=== PATIENT | female | born 1990 | race Two or more races ===

== ENCOUNTER → 2018-03-29 | Day surgery (SDC) | payer MEDICAID ==
[~2018-03-29] VITALS: Ht 170.2 cm; Wt 68.0 kg
[2018-03-29] VITALS (12 sets, daily range): BP systolic 97–109; BP diastolic 53–71
[~2018-03-29] MED LIST: AZITHROMYCIN250 MG ORAL; D5 1/2NS 1,000 ML IV SCH; DiphenhydrAMINE 50mg/ml Inj IVP PRN; HYDROCODON-ACE1 EA15 ORAL; HYDROmorphone 1mg/ml Carpuject SUBQ PRN; IBUPROFEN400 MG ORAL; IBUPROFEN600 MG ORAL; KEFLEX500 MG ORAL; Ketorolac 30mg Inj IV PRN; Ketorolac 30mg Inj ONE; LR 1000ml 1,000 ML IVLG SCH; LR 1000ml ONE; Lidocaine 1% MPF 10mg/ml 5ml ONE; MAALOX ADVANCE770 ML PO; MACROBID100 MG ORAL; MIDOL220 MG PO; Meperidine 50mg/ml Inj(FOR RIGORS ONLY) IV PRN; Metoclopramide 10mg/2ml Inj IVP PRN; Midazolam 2mg/2ml Inj ONE; Morphine Sulfate 4mg/ml Inj (IV USE ONLY) IVP ONE; NKM; NORCO 5-325 TA1 EACH ORAL; Norco 5mg/325mg tab ORAL PRN; PEPCID AC20 M2 PO; PHENERGAN25 M1 ORAL; Propofol 200mg/20ml IV ONE; Sterile Water Irrig 1000ml IRRIG ONE; TYLENOL EXTRA500 MG ORAL; Tylenol #3 tab (300mg/30mg) ORAL PRN; ZOFRAN4 MG ORAL; cefOXitin 1gm Inj ONE; fentaNYL 100 mcg/2 mL IV ONE
[2018-03-29 11:20] LABS: BASOPHILS % (AUTO) 1.1 % (0.0-2.0); HEMATOCRIT 38.2 % (37.0-47.0); HEMOGLOBIN 12.5 G/DL (12.0-16.0); LYMPHOCYTES % (AUTO) 37.8 % (20.0-45.0); MEAN CORPUSCULAR VOLUME 90 FL (80-99); MONOCYTES % (AUTO) 7.3 % (1.0-10.0); NEUTROPHILS % (AUTO) 50.7 % (45.0-75.0); PLATELET COUNT 299 K/UL (150-450); RED BLOOD COUNT 4.26 M/UL (4.20-5.40); RED CELL DISTRIBUTION WIDTH 11.3 % (11.6-14.8); WHITE BLOOD COUNT 8.5 K/UL (4.8-10.8)
[2018-03-29 11:25] LABS: ANION GAP 7 mmol/L (5-15); BLOOD UREA NITROGEN 11 mg/dL (7-18); CARBON DIOXIDE 29 MMOL/L (21-32); CHLORIDE 104 MMOL/L (98-107); CREATININE 0.6 MG/DL (0.55-1.30); POTASSIUM 3.6 MMOL/L (3.5-5.1); SODIUM 140 MMOL/L (136-145)
[2018-03-29 11:31] LABS: ALANINE AMINOTRANSFERASE 20 U/L (12-78); ALBUMIN 3.9 G/DL (3.4-5.0); ALBUMIN/GLOBULIN RATIO 1.1 (1.0-2.7); ALKALINE PHOSPHATASE 65 U/L (46-116); ASPARTATE AMINO TRANSFERASE 19 U/L (15-37); BILIRUBIN,TOTAL 0.7 MG/DL (0.2-1.0)
[2018-03-29 11:32] LABS: BILIRUBIN, URINE NEGATIVE (NEGATIVE); GLUCOSE, URINE (UA) NEGATIVE (NEGATIVE); KETONES,URINE NEGATIVE (NEGATIVE); LEUKOCYTE ESTERASE ,URINE 2+ (NEGATIVE); NITRITE,URINE NEGATIVE (NEGATIVE); PH,URINE 8 (4.5-8.0); PROTEIN,URINE 3+ (NEGATIVE); UROBILINOGEN,URINE NORMAL MG/DL (0.0-1.0)
[2018-03-29 11:33] LABS: APPEARANCE,URINE TURBID; COLOR,URINE RED
--- NOTE | 2018-03-29 14:03 | Diagnostic Imaging Report ---
Indication: Vaginal spotting x3 days, low but positive test, status post pill x2 Technique: Transabdominal and transvaginal images Comparison: 01/16/2015 Findings: Uterus measures 11.6 cm length by 5.4 cm AP. Area of mixed echogenicity material within the endometrium, mostly hyperechoic and hypervascular, measures 3.9 x 3.6 cm. No gestational sac demonstrated. There is a lower uterine segment fibroid. Left ovary measures 2.4 cm in length. Right ovary measures 3.6 cm in length. No adnexal mass demonstrated. No free cul-de-sac fluid Impression: Considerable mixed echogenicity hypervascular material within the endometrium, likely retained products of conception given stated clinical history Negative for adnexal mass Probable small uterine fibroid Findings discussed by phone with Dr. Juan in the emergency room at the time of interpretation
--- NOTE | 2018-03-29 15:30 | Emergency Room Report ---
History of Present Illness General Chief Complaint: Complications Source: Patient Present Illness HPI This patient states that in early out of she was 7 weeks . She states that day she found out she was she went to a women's health clinic and obtained the elective medical regimen. She states she followed the regimen. She did have bleeding at that time. She went for follow-up appointment 3 weeks later and was told she had some retained clots. She was also given a repeat dosage of pills that she is unsure of the name. She states that they were hormones. She states that she did have bleeding began at that time. She then followed up again and was placed on control pills 2 weeks ago. She states that she presents emergency department because she has had heavy vaginal bleeding since yesterday evening. She states she has been soaking tampons and pads. She's been soaking through and bleeding profusely. She also has pain in her pelvis. She denies fever or chills. She denies nausea or vomiting. She denies chest pain or shortness of breath. She has no other complaints. Allergies: Coded Allergies: No Known Allergies (Unverified , 11/15/14) Patient History Past Medical History: none, see triage record Last Menstrual Period: 01/2018 Now: No : 3 Para: 1 Reviewed Nursing Documentation: PMH: Agreed; PSxH: Agreed Nursing Documentation-PMH Past Medical History: No Stated History Review of Systems All Other Systems: negative except mentioned in HPI Physical Exam Vital Signs Date Time Temp Pulse Resp B/P (MAP) Pulse Ox O2 Delivery O2 Flow Rate FiO2 03/29/18 10:33 98.2 80 14 107/70 97 98.2 Sp02 EP Interpretation: reviewed, normal General Appearance: no apparent distress, alert, GCS 15, non-toxic Head: normocephalic, atraumatic Eyes: bilateral eye normal inspection, bilateral eye PERRL ENT: hearing grossly normal, normal pharynx, no angioedema, normal voice Neck: full range of motion, supple/symm/no masses Respiratory: chest non-tender, lungs clear, normal breath sounds, no respiratory distress, no retraction, no accessory muscle use, speaking full sentences Cardiovascular #1: regular rate, rhythm, no edema Gastrointestinal: normal bowel sounds, soft, non-distended, no guarding, no rebound, tenderness - TTP pelvis, suprapubic Rectal: deferred Genitourinary: ext genitalia/vag normal, other - OS open to fingertip. Moderate active bleeding from os. Musculoskeletal: back normal, gait/station normal, normal range of motion, non- tender, calf tenderness Neurologic: alert, oriented x3, responsive, motor strength/tone normal, sensory intact, speech normal Psychiatric: judgement/insight normal, memory normal, mood/affect normal, no suicidal/homicidal ideation Skin: normal color, no rash, warm/dry, well hydrated Medical Decision Making Diagnostic Impression: Primary Impression: Retained products of conception ER Course This patient has retained products of conception and heavy vaginal bleeding over the past 24 hours. Her vital signs did remain stable during her ED course. She did not require blood transfusion. This patient has had retained products of conception for a month and a half. [employer] on-call was contacted and took this patient to the operating room for surgical D&C. Laboratory Tests Test 03/29/18 10:50 White Blood Count 8.5 K/UL (4.8-10.8) Red Blood Count 4.26 M/UL (4.20-5.40) Hemoglobin 12.5 G/DL (12.0-16.0) Hematocrit 38.2 % (37.0-47.0) Mean Corpuscular Volume 90 FL (80-99) Mean Corpuscular Hemoglobin 29.3 PG (27.0-31.0) Mean Corpuscular Hemoglobin Concent 32.7 G/DL (32.0-36.0) Red Cell Distribution Width 11.3 % (11.6-14.8) L Platelet Count 299 K/UL (150-450) Mean Platelet Volume 8.3 FL (6.5-10.1) Neutrophils (%) (Auto) 50.7 % (45.0-75.0) Lymphocytes (%) (Auto) 37.8 % (20.0-45.0) Monocytes (%) (Auto) 7.3 % (1.0-10.0) Eosinophils (%) (Auto) 3.0 % (0.0-3.0) Basophils (%) (Auto) 1.1 % (0.0-2.0) Urine Color Red Urine Appearance Turbid Urine pH 8 (4.5-8.0) Urine Specific [place] 1.015 (1.005-1.035) Urine Protein 3+ (NEGATIVE) H Urine Glucose (UA) Negative (NEGATIVE) Urine Ketones Negative (NEGATIVE) Urine Blood 5+ (NEGATIVE) H Urine Nitrite Negative (NEGATIVE) Urine Bilirubin Negative (NEGATIVE) Urine Urobilinogen Normal MG/DL (0.0-1.0) Urine Leukocyte Esterase 2+ (NEGATIVE) H Urine RBC Tntc /HPF (0 - 2) H Urine WBC 2-4 /HPF (0 - 2) Urine Squamous Epithelial Cells Few /LPF (NONE/OCC) Urine Bacteria Few /HPF (NONE) Sodium Level 140 MMOL/L (136-145) Potassium Level 3.6 MMOL/L (3.5-5.1) Chloride Level 104 MMOL/L (98-107) Carbon Dioxide Level 29 MMOL/L (21-32) Anion Gap 7 mmol/L (5-15) Blood Urea Nitrogen 11 mg/dL (7-18) Creatinine 0.6 MG/DL (0.55-1.30) Estimate Glomerular Filtration Rate > 60 mL/min (>60) Glucose Level 93 MG/DL (74-106) Calcium Level 9.0 MG/DL (8.5-10.1) Total Bilirubin 0.7 MG/DL (0.2-1.0) Aspartate Amino Transferase (AST) 19 U/L (15-37) Alanine Aminotransferase (ALT) 20 U/L (12-78) Alkaline Phosphatase 65 U/L (46-116) Total Protein 7.3 G/DL (6.4-8.2) Albumin 3.9 G/DL (3.4-5.0) Globulin 3.4 g/dL Albumin/Globulin Ratio 1.1 (1.0-2.7) Human Chorionic Gonadotropin, Quant 7 mIU/mL (1-6) H CT/MRI/US Diagnostic Results CT/MRI/US Diagnostic Results : Imaging Test Ordered: US pelvis Impression Retained POC. See official report in EMR. Last Vital Signs Date Time Temp Pulse Resp B/P (MAP) Pulse Ox O2 Delivery O2 Flow Rate FiO2 03/29/18 11:19 98.2 03/29/18 10:33 80 14 107/70 97 Disposition: PLACE IN OBSERVATION Condition: Serious Referrals: NON PHYSICIAN (PCP) Griselda Marmolejo DO Mar 29, 2018 15:30
--- NOTE | 2018-03-29 16:59 | History & Physical ---
History and Physical History & Physicial GYNECOLOGY HISTORY & PHYSICAL CC: Heavy vaginal bleeding post- HPI: Jamil is a 27yo who presented to the ED with complaint of heavy vaginal bleeding post-medical . She was initially seen at an outpatient clinic on 02/17 and received Mife/Miso for Med Ab at 7w5d [place]. LMP early January. She reports that she had some heavy bleeding after the Mife/Miso but did not pass tissue and was seen 2w later for follow up and told she had clots in her uterus. She was given a repeat dose of Miso and states that she had nausea/vomiting for 3 days as well as some cramping, but no bleeding. 1 week later she had another ultrasound that revealed persistent clots in her uterus, she was started on COCs and was told to follow up in 3 weeks. She has most recently experienced copious vaginal bleeding, started yesterday, with passage of clots and cramping. She reports soaking pads and tampons and bleeding through her clothes. The ED physician states that she has been bleeding steadily since she has been in the ED with passage of clots. US revealed a thickened ET (3.9cm) with hypervascularity concerning for retained POC. She is currently experiencing cramping and is passing clots. Denies dizziness, lightheadedness, no fever or chills. No chest pain or shortness of breath. PMH: Denies hx of HTN, asthma, DM, or thyroid dz PSH: Denies OBHx: - 2y ago, Sab x 1, Tab x 1 GYNHx: Last Pap during , no hx abnl Pap, no known hx cysts or fibroids Meds: COCs Allergies: NKDA SocHx: lives with partner, her child, her mother in law. Smokes marijuana daily , social alcohol use, no tobacco FamHx: Grandparents of cancer, unknown type Vitals: T max 98.2, P 63, BP 99/56, RR 16, O2 100% RA Exam: Gen: somewhat uncomfortable while cramping, otherwise in NAD HEENT: OP clear, MMM CV: Reg rate, no tachycardia Pulm: No increased work of breathing Abd: Soft, TTP in suprapubic region Pelvic: Deferred, +blood at perineum Ext: No calf TTP Labs: Test 03/29/18 10:50 White Blood Count 8.5 K/UL (4.8-10.8) Red Blood Count 4.26 M/UL (4.20-5.40) Hemoglobin 12.5 G/DL (12.0-16.0) Hematocrit 38.2 % (37.0-47.0) Mean Corpuscular Volume 90 FL (80-99) Mean Corpuscular Hemoglobin 29.3 PG (27.0-31.0) Mean Corpuscular Hemoglobin Concent 32.7 G/DL (32.0-36.0) Red Cell Distribution Width 11.3 % (11.6-14.8) L Platelet Count 299 K/UL (150-450) Mean Platelet Volume 8.3 FL (6.5-10.1) Neutrophils (%) (Auto) 50.7 % (45.0-75.0) Lymphocytes (%) (Auto) 37.8 % (20.0-45.0) Monocytes (%) (Auto) 7.3 % (1.0-10.0) Eosinophils (%) (Auto) 3.0 % (0.0-3.0) Basophils (%) (Auto) 1.1 % (0.0-2.0) Urine Color Red Urine Appearance Turbid Urine pH 8 (4.5-8.0) Urine Specific [place] 1.015 (1.005-1.035) Urine Protein 3+ (NEGATIVE) H Urine Glucose (UA) Negative (NEGATIVE) Urine Ketones Negative (NEGATIVE) Urine Blood 5+ (NEGATIVE) H Urine Nitrite Negative (NEGATIVE) Urine Bilirubin Negative (NEGATIVE) Urine Urobilinogen Normal MG/DL (0.0-1.0) Urine Leukocyte Esterase 2+ (NEGATIVE) H Urine RBC Tntc /HPF (0 - 2) H Urine WBC 2-4 /HPF (0 - 2) Urine Squamous Epithelial Cells Few /LPF (NONE/OCC) Urine Bacteria Few /HPF (NONE) Sodium Level 140 MMOL/L (136-145) Potassium Level 3.6 MMOL/L (3.5-5.1) Chloride Level 104 MMOL/L (98-107) Carbon Dioxide Level 29 MMOL/L (21-32) Anion Gap 7 mmol/L (5-15) Blood Urea Nitrogen 11 mg/dL (7-18) Creatinine 0.6 MG/DL (0.55-1.30) Estimat Glomerular Filtration Rate > 60 mL/min (>60) Glucose Level 93 MG/DL (74-106) Calcium Level 9.0 MG/DL (8.5-10.1) Total Bilirubin 0.7 MG/DL (0.2-1.0) Aspartate Amino Transf (AST/SGOT) 19 U/L (15-37) Alanine Aminotransferase (ALT/SGPT) 20 U/L (12-78) Alkaline Phosphatase 65 U/L (46-116) Total Protein 7.3 G/DL (6.4-8.2) Albumin 3.9 G/DL (3.4-5.0) Globulin 3.4 g/dL Albumin/Globulin Ratio 1.1 (1.0-2.7) Human Chorionic Gonadotropin, Quant 7 mIU/mL (1-6) H Imaging: Pelvic US - Findings: - Uterus measures 11.6 cm length by 5.4 cm AP. Area of mixed echogenicity material within the endometrium, mostly hyperechoic and hypervascular, measures 3.9 x 3.6 cm. No gestational sac demonstrated. There is a lower uterine segment fibroid. Left ovary measures 2.4 cm in length. Right ovary measures 3.6 cm in length. No adnexal mass demonstrated. No free cul-de-sac fluid Impression: - Considerable mixed echogenicity hypervascular material within the endometrium , likely retained products of conception given stated clinical history - Negative for adnexal mass - Probable small uterine fibroid ASSESSMENT/PLAN: 27yo s/p Medical termination on 02/17, presenting with heavy VB, likely retained products of conception. Recommend urgent D&C. - Patient has failed medical management and is bleeding heavily - She has remained stable with normal H/H but is continuing to bleed with evidence of retained POC on ultrasound - Will proceed to OR as soon as we are able - R/B/A to procedure discussed with the patient, and consent was obtained. All questions answered. - Rh positive, no indication for Rhogam - Anticipate d/c home from PACU once she has met all d/c criteria Nadia Xavier M.D. Mar 29, 2018 16:59
--- NOTE | 2018-03-29 17:45 | Pre-Procedure Note/Attestation ---
Pre-Procedure Note/Attestation Complete Prior to Procedure Planned Procedure: not applicable Procedure Narrative: Dilation and curettage with and without suction Indications for Procedure Pre-Operative Diagnosis: Retained products of conception, heavy vaginal bleeding Attestation I attest that I discussed the nature of the procedure; its benefits; risks and complications; and alternatives (and the risks and benefits of such alternatives ), prior to the procedure, with the patient (or the patient's legal jewelry sales representative). I attest that, if there was a reasonable possibility of needing a blood transfusion, the patient (or the patient's legal jewelry sales representative) was given the [facility] standardized written summary, pursuant to the Zach Korey Blood Safety Act ([place] Health and Safety Code # 1645, as amended). I attest that I re-evaluated the patient just prior to the surgery and that there has been no change in the patient's H&P, except as documented below: None Nadia Xavier M.D. Mar 29, 2018 17:45
--- NOTE | 2018-03-29 18:07 | Anethesia Preoperative Eval ---
Anesthesia Pre-op PMH/ROS General Date of Evaluation: Mar 29, 2018 Time of Evaluation: 17:10 Anesthesiologist: Heri ASA Score: ASA 2 Mallampati Score Class I : Soft palate, uvula, fauces, pillars visible Class II: Soft palate, uvula, fauces visible Class III: Soft palate, base of uvula visible Class IV: Only hard plate visible Mallampati Classification: Class II Surgeon: Morenita Diagnosis: Incomplete Surgical Procedure: Suction D&C Anesthesia History: none Social History: drug use - [place] Allergies: Coded Allergies: No Known Allergies (Unverified , 11/15/14) Past Medical History Cardiovascular: Denies: HTN, CAD, LA, valve dz, arrhythmia, other Pulmonary: Denies: asthma, COPD, MICHAEL, other Gastrointestinal/Genitourinary: Reports: GERD Neurologic/Psychiatric: Denies: dementia, CVA, depression/anxiety, TIA, other Endocrine: Denies: DM, hypothyroidism, steroids, other HEENT: Denies: cataract (L), cataract (R), glaucoma, QUINAULT (L), QUINAULT (R), other Hematology/Immune: Reports: anemia - mild PMH Narrative: as above PSxH Narrative: Med. Anesthesia Pre-op Phys. Exam Physician Exam Last Vital Signs Date Time Temp Pulse Resp B/P (MAP) Pulse Ox O2 Delivery O2 Flow Rate FiO2 03/29/18 17:10 97.9 63 16 110/63 100 Room Air 97.9 Constitutional: NAD Neurologic: CN 2-12 intact Cardiovascular: RRR, no M/R/G Respiratory: CTA Gastrointestinal: S/NT/ND Airway Exam Mallampati Score: Class II MO: limited Neck: flexible ROM: full Teeth: missing, broken Dentures: no upper, no lower Anesthesia Pre-op A/P Labs Hematology Test 03/29/18 10:50 White Blood Count 8.5 K/UL (4.8-10.8) Red Blood Count 4.26 M/UL (4.20-5.40) Hemoglobin 12.5 G/DL (12.0-16.0) Hematocrit 38.2 % (37.0-47.0) Mean Corpuscular Volume 90 FL (80-99) Mean Corpuscular Hemoglobin 29.3 PG (27.0-31.0) Mean Corpuscular Hemoglobin Concent 32.7 G/DL (32.0-36.0) Red Cell Distribution Width 11.3 % (11.6-14.8) L Platelet Count 299 K/UL (150-450) Mean Platelet Volume 8.3 FL (6.5-10.1) Neutrophils (%) (Auto) 50.7 % (45.0-75.0) Lymphocytes (%) (Auto) 37.8 % (20.0-45.0) Monocytes (%) (Auto) 7.3 % (1.0-10.0) Eosinophils (%) (Auto) 3.0 % (0.0-3.0) Basophils (%) (Auto) 1.1 % (0.0-2.0) Chemistry Test 03/29/18 10:50 Sodium Level 140 MMOL/L (136-145) Potassium Level 3.6 MMOL/L (3.5-5.1) Chloride Level 104 MMOL/L (98-107) Carbon Dioxide Level 29 MMOL/L (21-32) Anion Gap 7 mmol/L (5-15) Blood Urea Nitrogen 11 mg/dL (7-18) Creatinine 0.6 MG/DL (0.55-1.30) Estimat Glomerular Filtration Rate > 60 mL/min (>60) Glucose Level 93 MG/DL (74-106) Calcium Level 9.0 MG/DL (8.5-10.1) Total Bilirubin 0.7 MG/DL (0.2-1.0) Aspartate Amino Transf (AST/SGOT) 19 U/L (15-37) Alanine Aminotransferase (ALT/SGPT) 20 U/L (12-78) Alkaline Phosphatase 65 U/L (46-116) Total Protein 7.3 G/DL (6.4-8.2) Albumin 3.9 G/DL (3.4-5.0) Globulin 3.4 g/dL Albumin/Globulin Ratio 1.1 (1.0-2.7) Human Chorionic Gonadotropin, Quant 7 mIU/mL (1-6) H Risk Assessment & Plan Assessment: ASA 2 Plan: GA with LMA Status Change Before Surgery: No Pre-Antibiotics Drug: Cefoxitin !gr. Given Within 1 Hr of Incision: Yes Time Given: 17:45 Tre Liriano MD Mar 29, 2018 18:07
--- NOTE | 2018-03-29 18:26 | Brief Operative Note ---
Immediate Post Operative Note Operative Note Chief Complaint: Heavy vaginal bleeding post medical Pre-op Diagnosis: Retained products of conception, heavy vaginal bleeding Procedure: Dilation and curettage with and without suction Post-op Diagnosis: Retained products of conception Post-op Diagnosis: same as pre-op Surgeon: Nadia Xavier MD Anesthesiologist: Dr. Liriano Anesthesia: general - LMA Specimen: yes Complications: none Condition: stable Fluids: 1000cc crystalloid Estimated Blood Loss: volume - 250cc Drains: none Implant(s) used?: No Nadia Xavier M.D. Mar 29, 2018 18:26
--- NOTE | 2018-03-29 18:30 | Operative Note - PDOC ---
Operative Note Operative Note Date of Operation/Procedure: Mar 29, 2018 Chief Complaint: Heavy vaginal bleeding post medical Pre-op Diagnosis: Retained products of conception, heavy vaginal bleeding Procedure: Dilation and curettage with and without suction Post-op Diagnosis: Retained products of conception Post-op Diagnosis: same as pre-op Surgeon: Nadia Xavier MD Anesthesiologist: Dr. Liriano Anesthesia: general - LMA Specimen: yes Complications: none Condition: stable Fluids: 1000cc crystalloid Estimated Blood Loss: volume - 250cc Drains: none Implant(s) used?: No Indications for Procedure Heavy vaginal bleeding with evidence of retained products of conception on ultrasound in ED Description of Procedure The R/B/A to the procedure were discussed with the patient and informed consent was obtained. The patient was taken to the operating room where general anesthesia was administered without difficulty. The patient was placed in dorsal lithotomy with SCD stockings in place. Exam under anesthesia revealed a 7-8cm uterus with dilated cervix and 25cc of dark clot in the vault. The patient was then prepped and draped in the usual sterile fashion. Time out was performed to verify correct patient and procedure. Antibiotics were administered. Straight cath was performed to empty the bladder. A sterile speculum was inserted into the vagina and the anterior lip of the cervix was grasped with a ring forceps. The cervix was dilated to accommodate the 7mm curette. The 7mm rigid suction curette was inserted into the uterine cavity and was used to perform gentle curettage. A gritty sensation was felt throughout the uterine cavity. Fractional curettage was then performed and a gritty texture was appreciated throughout the uterine cavity. Some uterine atony and bleeding was noted during the procedure, thus IM Methergine 0.2mg was administered. Bleeding resolved after administration of Methergine coupled with uterine massage. The 7mm suction curette was then reinserted into the uterine cavity to clear out all clots and remaining blood from the uterine cavity and a gritty texture was appreciated throughout the uterine cavity once more. The procedure was ended. All instruments were removed and excellent hemostasis was noted. The patient was awakened from anesthesia and taken to the recovery room in good condition. The patient will be discharged home once she has met all discharge criteria with a prescription for a PO Methergine series. Nadia Xavier M.D. Mar 29, 2018 18:30
--- NOTE | 2018-03-29 18:41 | Immediate Post-Op Evaluation ---
Immediate Post-Op Evalulation Immediate Post-Op Evalulation Procedure: Suction D&C Date of Evaluation: Mar 29, 2018 Time of Evaluation: 18:39 IV Fluids: 1200 Blood Products: NONE Estimated Blood Loss: 250 Urinary Output: 300 Blood Pressure Systolic: 107 Blood Pressure Diastolic: 58 Pulse Rate: 80 Respiratory Rate: 20 O2 Sat by Pulse Oximetry: 100 Temperature (Fahrenheit): 97.4 Pain Score (1-10): 1 Nausea: No Vomiting: No Complications none Patient Status: reacts, patent, none Hydration Status: adequate Tre Liriano MD Mar 29, 2018 18:41
--- NOTE | 2018-03-29 18:42 | 48 Hour Post Anesthesia Eval ---
Post Anesthesia Evaluation Procedure: Suction D&C Date of Evaluation: Mar 29, 2018 Time of Evaluation: 19:40 Blood Pressure Systolic: 108 0: 59 Pulse Rate: 81 Respiratory Rate: 20 Temperature (Fahrenheit): 97.6 O2 Sat by Pulse Oximetry: 98 Airway: patent Nausea: No Vomiting: No Pain Intensity: 2 Hydration Status: adequate Cardiopulmonary Status: stable Mental Status/LOC: patient returned to baseline Follow-up Care/Observations: n/a Post-Anesthesia Complications: none Follow-up care needed: ready to discharge Tre Liriano MD Mar 29, 2018 18:42
== END | disposition home or self-care (01) ==
LOC: EMR 11:35 → SUR 16:58
DX: O03.4 Incomplete spontaneous abortion without complication (principal); D64.9 Anemia, unspecified; K21.9 Gastro-esophageal reflux disease without esophagitis
CPT/HCPCS: 36415; 59812; 76830; 76856; 80053; 81003; 84702; 85025; 86900; 86901; 96361; 96374; 96375; 96376; 99285; J0694; J1885; J2250; J2270; J2405; J2704; J3010; Z7512; 94003; 94150

== ENCOUNTER 2018-04-02 06:48 | Emergency (ER) | payer MEDICAID ==
[~2018-04-02] VITALS: Ht 170.2 cm; Wt 68.0 kg
[~2018-04-02 06:48] MED LIST changes: -D5 1/2NS 1,000 ML IV SCH; -DiphenhydrAMINE 50mg/ml Inj IVP PRN; -HYDROmorphone 1mg/ml Carpuject SUBQ PRN; -Ketorolac 30mg Inj IV PRN; -Ketorolac 30mg Inj ONE; -LR 1000ml 1,000 ML IVLG SCH; -LR 1000ml ONE; -Lidocaine 1% MPF 10mg/ml 5ml ONE; -MAALOX ADVANCE770 ML PO; -Meperidine 50mg/ml Inj(FOR RIGORS ONLY) IV PRN; -Metoclopramide 10mg/2ml Inj IVP PRN; -Midazolam 2mg/2ml Inj ONE; -Morphine Sulfate 4mg/ml Inj (IV USE ONLY) IVP ONE; -Norco 5mg/325mg tab ORAL PRN; -PEPCID AC20 M2 PO; -Propofol 200mg/20ml IV ONE; -Sterile Water Irrig 1000ml IRRIG ONE; -Tylenol #3 tab (300mg/30mg) ORAL PRN; -cefOXitin 1gm Inj ONE; -fentaNYL 100 mcg/2 mL IV ONE
[2018-04-02 07:18] VITALS: BP 93/61
--- NOTE | 2018-04-02 07:23 | Emergency Room Report ---
History of Present Illness General Chief Complaint: Chest Pain Source: Patient Present Illness HPI This patient is status post 3 days from a D&C for retained products of conception. Apparently the procedure went well. She did have some blood loss per report. The patient states that she had been doing well and denies vaginal bleeding. She states that last night she started feeling a burning sensation in her epigastrium and through her mid chest. She states that this felt hot. She states that over the night last night she then developed a pressure sensation in her chest. She states it felt like someone was sitting on her chest at that time. She also became very anxious. She denies fever or chills. She denies cough or congestion. She denies pelvic pain. She has no other complaints. Allergies: Coded Allergies: No Known Allergies (Unverified , 11/15/14) Patient History Past Medical History: see triage record Social History: Denies: smoking, alcohol use, drug use Last Menstrual Period: unk Reviewed Nursing Documentation: PMH: Agreed; PSxH: Agreed Nursing Documentation-PMH Past Medical History: No History, Except For Review of Systems All Other Systems: negative except mentioned in HPI Physical Exam Vital Signs Date Time Temp Pulse Resp B/P (MAP) Pulse Ox O2 Delivery O2 Flow Rate FiO2 04/02/18 06:52 98.6 96 16 107/76 100 Room Air 98.6 Sp02 EP Interpretation: reviewed, normal General Appearance: no apparent distress, alert, GCS 15, non-toxic Head: normocephalic, atraumatic Eyes: bilateral eye normal inspection, bilateral eye PERRL ENT: hearing grossly normal, normal pharynx, no angioedema, normal voice Neck: full range of motion, supple/symm/no masses Respiratory: chest non-tender, lungs clear, normal breath sounds, speaking full sentences Cardiovascular #1: regular rate, rhythm, no edema Gastrointestinal: normal bowel sounds, non tender, soft, non-distended, no guarding, no rebound Rectal: deferred Musculoskeletal: back normal, gait/station normal, normal range of motion, non- tender Neurologic: alert, oriented x3, responsive, motor strength/tone normal, sensory intact, speech normal Psychiatric: judgement/insight normal, memory normal, mood/affect normal, no suicidal/homicidal ideation Skin: normal color, no rash, warm/dry, well hydrated Medical Decision Making Diagnostic Impression: Primary Impression: Chest pain Additional Impression: GERD (gastroesophageal reflux disease) ER Course This patient recently had a D&C 3 days ago. She presents with chest pain and pressure. My differential diagnosis included gastritis, GERD and anxiety as the most likely given the patient's presentation and examination in addition to her distress, however, the patient is at moderate risk for PE given the recent surgical procedure. Therefore, I felt that I should rule out PE with a CTA of the chest. CTA showed no e/o PE or other acute condition. She is incidentally noted to have a 5-6 mm pulmonary nodule and a 17mm R. thyroid nodule. I also obtained basic laboratory workup to include CBC, CMP and cardiac enzymes. The patient did have a low potassium and was given oral potassium replacement. She is instructed to eat potassium rich foods at home. Laboratory Tests Test 04/02/18 07:10 04/02/18 08:20 White Blood Count 8.2 K/UL (4.8-10.8) Red Blood Count 3.58 M/UL (4.20-5.40) L Hemoglobin 10.7 G/DL (12.0-16.0) L Hematocrit 31.8 % (37.0-47.0) L Mean Corpuscular Volume 89 FL (80-99) Mean Corpuscular Hemoglobin 29.9 PG (27.0-31.0) Mean Corpuscular Hemoglobin Concent 33.7 G/DL (32.0-36.0) Red Cell Distribution Width 11.5 % (11.6-14.8) L Platelet Count 307 K/UL (150-450) Mean Platelet Volume 8.0 FL (6.5-10.1) Neutrophils (%) (Auto) 38.9 % (45.0-75.0) L Lymphocytes (%) (Auto) 46.6 % (20.0-45.0) H Monocytes (%) (Auto) 8.5 % (1.0-10.0) Eosinophils (%) (Auto) 5.1 % (0.0-3.0) H Basophils (%) (Auto) 1.0 % (0.0-2.0) Sodium Level 141 MMOL/L (136-145) Potassium Level 3.0 MMOL/L (3.5-5.1) L Chloride Level 106 MMOL/L (98-107) Carbon Dioxide Level 29 MMOL/L (21-32) Anion Gap 6 mmol/L (5-15) Blood Urea Nitrogen 9 mg/dL (7-18) Creatinine 0.6 MG/DL (0.55-1.30) Estimate Glomerular Filtration Rate > 60 mL/min (>60) Glucose Level 103 MG/DL (74-106) Calcium Level 8.6 MG/DL (8.5-10.1) Total Bilirubin 0.3 MG/DL (0.2-1.0) Aspartate Amino Transferase (AST) 18 U/L (15-37) Alanine Aminotransferase (ALT) 17 U/L (12-78) Alkaline Phosphatase 57 U/L (46-116) Total Creatine Kinase 75 U/L (26-308) Creatine Kinase MB < 0.5 NG/ML (0.0-3.6) Creatine Kinase MB Relative Index 0.6 Troponin I 0.000 ng/mL (0.000-0.056) Total Protein 6.7 G/DL (6.4-8.2) Albumin 3.6 G/DL (3.4-5.0) Globulin 3.1 g/dL Albumin/Globulin Ratio 1.2 (1.0-2.7) Human Chorionic Gonadotropin, Quant 1 mIU/mL (1-6) Urine Color Coco Urine Appearance Slightly cloudy Urine pH 6 (4.5-8.0) Urine Specific [place] 1.020 (1.005-1.035) Urine Protein 2+ (NEGATIVE) H Urine Glucose (UA) Negative (NEGATIVE) Urine Ketones Negative (NEGATIVE) Urine Blood Negative (NEGATIVE) Urine Nitrite Negative (NEGATIVE) Urine Bilirubin Negative (NEGATIVE) Urine Ictotest Pending Urine Urobilinogen 1 MG/DL (0.0-1.0) H Urine Leukocyte Esterase 3+ (NEGATIVE) H Urine RBC Pending Urine WBC Pending Urine Squamous Epithelial Cells Pending Urine Bacteria Pending EKG Diagnostic Results Rate: bradycardiac - S.martin Rhythm: NSR ST Segments: no acute changes Rhythm Strip Diag. Results EP Interpretation: yes Rate: 50's Rhythm: NSR, no PVC's, no ectopy Chest X-Ray Diagnostic Results Chest X-Ray Diagnostic Results : Chest X-Ray Ordered: Yes # of Views/Limited/Complete: 1 View Indication: Chest Pain EP Interpretation: Yes Interpretation: no consolidation, no effusion, no pneumothorax, no acute cardiopulmonary disease Impression: No acute disease - Misty Last Vital Signs Date Time Temp Pulse Resp B/P (MAP) Pulse Ox O2 Delivery O2 Flow Rate FiO2 04/02/18 06:52 98.6 96 16 107/76 100 Room Air 98.6 Status: improved Disposition: HOME, SELF-CARE Condition: Improved Referrals: NOT CHOSEN IPA/MD,REFERRING (PCP) Patient Instructions: Nonspecific Chest Pain, Heartburn Griselda Marmolejo DO Apr 02, 2018 07:23
[2018-04-02] MEDS ORDERED: Isovue-370 150ml vial INJ PRN (07:30)
[2018-04-02] MEDS ORDERED: Lidocaine 2% Visc 15ml soln ORAL ONE (07:30)
[2018-04-02 07:36] LABS: EOSINOPHILS % (AUTO) 5.1 % (0.0-3.0); HEMATOCRIT 31.8 % (37.0-47.0); HEMOGLOBIN 10.7 G/DL (12.0-16.0); LYMPHOCYTES % (AUTO) 46.6 % (20.0-45.0); MEAN CORPUSCULAR VOLUME 89 FL (80-99); MONOCYTES % (AUTO) 8.5 % (1.0-10.0); NEUTROPHILS % (AUTO) 38.9 % (45.0-75.0); PLATELET COUNT 307 K/UL (150-450); RED BLOOD COUNT 3.58 M/UL (4.20-5.40); RED CELL DISTRIBUTION WIDTH 11.5 % (11.6-14.8); WHITE BLOOD COUNT 8.2 K/UL (4.8-10.8)
[2018-04-02 07:40] LABS: ANION GAP 6 mmol/L (5-15); BLOOD UREA NITROGEN 9 mg/dL (7-18); CALCIUM 8.6 MG/DL (8.5-10.1); CARBON DIOXIDE 29 MMOL/L (21-32); CHLORIDE 106 MMOL/L (98-107); CREATININE 0.6 MG/DL (0.55-1.30); SODIUM 141 MMOL/L (136-145)
[2018-04-02 07:54] LABS: ALANINE AMINOTRANSFERASE 17 U/L (12-78); ALBUMIN 3.6 G/DL (3.4-5.0); ALBUMIN/GLOBULIN RATIO 1.2 (1.0-2.7); ALKALINE PHOSPHATASE 57 U/L (46-116); ASPARTATE AMINO TRANSFERASE 18 U/L (15-37); BILIRUBIN,TOTAL 0.3 MG/DL (0.2-1.0); CKMB < 0.5 NG/ML (0.0-3.6); CREATINE KINASE 75 U/L (26-308)
[2018-04-02] MEDS ORDERED: Ketorolac 30mg Inj IV ONE (08:15)
[2018-04-02 08:26] LABS: APPEARANCE,URINE SLIGHTLY CLOUDY; BILIRUBIN, URINE NEGATIVE (NEGATIVE); COLOR,URINE AMBER; GLUCOSE, URINE (UA) NEGATIVE (NEGATIVE); KETONES,URINE NEGATIVE (NEGATIVE); LEUKOCYTE ESTERASE ,URINE 3+ (NEGATIVE); NITRITE,URINE NEGATIVE (NEGATIVE); PH,URINE 6 (4.5-8.0); PROTEIN,URINE 2+ (NEGATIVE); UROBILINOGEN,URINE 1 MG/DL (0.0-1.0)
--- NOTE | 2018-04-02 08:37 | Diagnostic Imaging Report ---
PORTABLE AP CXR: HISTORY: 27-year-old female with chest pain. COMPARISON: None. FINDINGS: The lungs are grossly clear. Heart size is within normal limits. No abnormal mediastinal widening. No obvious pneumothorax or effusion. Bilateral nipple rings/bars are noted. IMPRESSION: No acute abnormality identified to explain chest pain.
[2018-04-02 09:33] VITALS: BP 101/66
--- NOTE | 2018-04-02 09:41 | Diagnostic Imaging Report ---
INDICATION: Chest pain TECHNIQUE: Multiple, contiguous axial cuts of the chest are obtained following the administration of IV contrast. High resolution axial images as well as sagittal and coronal reformatted images are available. One or more of the following dose reduction techniques were used: automated exposure control, adjustment of the mA and/or kV according to patient size, use of iterative reconstruction technique. COMPARISON: None FINDINGS: No pulmonary embolus is identified. The aorta is within normal limits, no aneurysm or dissection. The cardiomediastinal structures are normal. No adenopathy or effusions. 5-6 mm right lower lobe pulmonary nodule (image 103 series 7). The lungs are otherwise clear. 17 mm right thyroid nodule. The osseous structures are unremarkable. IMPRESSION: 1. No pulmonary embolus. 2. 5-6 mm right lower lobe pulmonary nodule, six-month followup low dose chest CT can be obtained to document stability. 3. 17 mm right thyroid lobe nodule, correlation can be obtained with ultrasound for further evaluation. CTDI: 16.93 mGy DLP: 576 mGycm
[2018-04-02] MEDS ORDERED: PEPCID AC20 M2 PO (10:06)
[2018-04-02] MEDS ORDERED: MAALOX ADVANCE770 ML PO (10:06)
[2018-04-02 10:14] VITALS: BP 101/66
--- NOTE | 2018-04-03 13:55 | Cardiology Report ---
APPROVED REPORT EKG Measurement Heart [id number] ID [id number] Normal sinus rhythm with sinus arrhythmia Normal ECG
== END 2018-04-02 10:14 | disposition home or self-care (01) ==
LOC: EMR 07:11
DX: K21.9 Gastro-esophageal reflux disease without esophagitis (principal); R07.9 Chest pain, unspecified
CPT/HCPCS: 36415; 71045; 71275; 80053; 80307; 81003; 82550; 82553; 84484; 84702; 85025; 93005; 96361; 96374; 99284; J1885; Q9967; J8499